=== PATIENT | male | born 1975 | race Caucasian/White ===

== ENCOUNTER 2016-10-19 20:13 | Emergency (ER) | payer SELFPAY ==
[2016-10-19 23:22] LABS: ABSOLUTE EOSINOPHILS # (AUTO) 0.3 10^3/uL (0.0-0.6); ABSOLUTE LYMPHOCYTES (AUTO) 2.2 10^3/uL (0.5-4.7); ABSOLUTE MONOCYTES (AUTO) 0.3 10^3/uL (0.1-1.4); ABSOLUTE NEUT (AUTO) 1.6 10^3/uL (1.7-8.2); BASOPHILS % (AUTO) 0.3 % (0-2); EOSINOPHILS % (AUTO) 6.4 % (0-6); HEMATOCRIT 43.8 % (37.9-51.0); HEMOGLOBIN 15.1 g/dL (13.5-17.0); HGB HCT DIFFERENCE 1.5; LYMPHOCYTES % (AUTO) 49.7 % (13-45); MEAN CORPUSCULAR HEMOGLOBIN 33.7 pg (27.0-33.4); MEAN CORPUSCULAR HGB CONC 34.4 g/dL (32.0-36.0); MEAN CORPUSCULAR VOLUME 98 fl (80-97); MONOCYTES % (AUTO) 6.2 % (3-13); RED BLOOD COUNT 4.47 10^6/uL (4.35-5.55); RED CELL DISTRIBUTION WIDTH 12.9 % (11.5-14.0); SEGMENTED NEUTROPHILS % (AUTO) 37.4 % (42-78); WHITE BLOOD COUNT 4.4 10^3/uL (4.0-10.5)
[2016-10-19 23:32] LABS: ANION GAP 15 (5-19); BLOOD UREA NITROGEN 5 mg/dL (7-20); CALCIUM 9.7 mg/dL (8.4-10.2); CARBON DIOXIDE 27 mmol/L (22-30); CHLORIDE 101 mmol/L (98-107); CREATININE RESULT 0.82 mg/dL (0.52-1.25); GLUCOSE 100 mg/dL (75-110); POTASSIUM 4.6 mmol/L (3.6-5.0); SODIUM 142.9 mmol/L (137-145)
--- NOTE | 2016-10-19 23:55 | EKG REPORT ---
SEVERITY:- BORDERLINE ECG - SINUS RHYTHM BORDERLINE INFERIOR Q WAVES : Confirmed by: Carolyn Diana 19-Oct-2016 23:54:26
--- NOTE | 2016-10-20 00:06 | ER Document Report ---
ED General - General Chief Complaint: Shortness Of Breath Stated Complaint: BACK PAIN Time Seen by Provider: 10/19/16 22:37 Notes: Patient is a 41-year-old male without past medical history who presents with 1 year of intermittent episodes of feeling short of breath with associated sinus pressure and nasal congestion. States he had a similar episode today which prompted him to come to the emergency department today. He denies any cardiac history, history of DVT or pulmonary embolus, no history of restrictive or obstructive lung disease. He has not done anything to treat his symptoms. He has not noted an obvious trigger for his symptoms. He denies any complaints at the time of my assessment. He has not seen a primary care doctor regarding today's concerns. He does use a vaporizer for smoking. - Related Data Allergies/Adverse Reactions: No Known Allergies Allergy (Unverified 10/19/16 20:28) Past Medical History - General Information source: Patient - Social History Smoking Status: Current Every Day Smoker Chew tobacco use (# tins/day): No Frequency of alcohol use: 2-3 beers daily Drug Abuse: None Lives with: Spouse/Significant other Family History: Reviewed & Not Pertinent Pulmonary Medical History: Reports: Hx Bronchitis Renal/ Medical History: Denies: Hx Peritoneal Dialysis Past Surgical History: Reports: Hx Oral Surgery - jaw/orthodontic - Immunizations Hx Diphtheria, Pertussis, Tetanus Vaccination: Yes Review of Systems - Review of Systems Notes: Constitutional: Negative for fever. HENT: Negative for sore throat. Positive for nasal congestion and postnasal drip Eyes: Negative for visual changes. Cardiovascular: Negative for chest pain. Respiratory: Positive for shortness of breath. Gastrointestinal: Negative for abdominal pain, vomiting or diarrhea. Genitourinary: Negative for dysuria. Musculoskeletal: Negative for back pain. Skin: Negative for rash. Neurological: Negative for headaches, weakness or numbness. 10 point ROS negative except as marked above and in HPI. Physical Exam - Vital signs Vitals: Temp Pulse Resp BP Pulse Ox 97.8 F 81 18 131/88 H 98 10/19/16 20:28 10/19/16 20:28 10/19/16 20:28 10/19/16 20:28 10/19/16 20:28 Interpretation: Normal Notes: PHYSICAL EXAMINATION: GENERAL: Well-appearing, well-nourished and in no acute distress. HEAD: Atraumatic, normocephalic. EYES: Pupils equal round and reactive to light, extraocular movements intact, sclera anicteric, conjunctiva are normal. ENT: nares patent, oropharynx clear without exudates. Moist mucous membranes. NECK: Normal range of motion, supple without lymphadenopathy LUNGS: Breath sounds clear to auscultation bilaterally and equal. No wheezes rales or rhonchi. HEART: Regular rate and rhythm without murmurs ABDOMEN: Soft, nontender, normoactive bowel sounds. No guarding, no rebound. No masses appreciated. EXTREMITIES: Normal range of motion, no pitting or edema. No cyanosis. NEUROLOGICAL: No focal neurological deficits. Moves all extremities spontaneously and on command. PSYCH: Normal mood, normal affect. SKIN: Warm, Dry, normal turgor, no rashes or lesions noted. Course - Re-evaluation Re-evalutation: 10/20/16 00:00 Patient presents with one-year intermittent feelings of difficulty breathing, nasal congestion and postnasal drip. Contrary to triage assessment patient actually denies any acute episodes of chest pain. He is otherwise very well in appearance, vitals within normal limits, no acute distress. Chest x-ray is clear. Laboratories including a single troponin are unremarkable. His symptoms are most consistent with likely allergic rhinitis with associated postnasal drip. He may have subtle component of reactive airway disease. He will be started on antihistamines, given an albuterol inhaler, and encouraged to follow closely as an outpatient. An acute pulmonary embolism ACS, pneumothorax, aortic dissection, or acute pneumonia based on exam, imaging and history.At this time will discharge with return precautions and follow-up recommendations. Verbal discharge instructions given a the bedside and opportunity for questions given. Medication warnings reviewed. Patient is in agreement with this plan and has verbalized understanding of return precautions and the need for primary care follow-up in the next 24-72 hours. - Vital Signs Vital signs: Temp Pulse Resp BP Pulse Ox 98.1 F 81 16 126/94 H 99 10/20/16 00:48 10/19/16 20:28 10/20/16 00:01 10/20/16 00:01 10/20/16 00:01 - Laboratory Result Diagrams: 10/19/16 22:57 10/19/16 22:57 Laboratory results interpreted by me: 10/19/16 10/19/16 22:57 22:57 MCV 98 H MCH 33.7 H Seg Neutrophils % 37.4 L Lymphocytes % 49.7 H Eosinophils % 6.4 H Absolute Neutrophils 1.6 L BUN 5 L - Diagnostic Test Radiology reviewed: Image reviewed, Reports reviewed Radiology results interpreted by me: 10/20/16 03:01 Chest x-ray: No acute infiltrate or pneumothorax - EKG Interpretation by Me Additional EKG results interpreted by me: 10/20/16 03:01 Normal sinus rhythm. Rate 70. No ST elevations or depressions. QTC is 46. Discharge - Discharge Clinical Impression: Shortness of breath Allergic rhinitis Qualifiers: Allergic rhinitis trigger: unspecified Allergic rhinitis seasonality: unspecified seasonality Qualified Code(s): J30.9 - Allergic rhinitis, unspecified Condition: Good Disposition: HOME, SELF-CARE Additional Instructions: Start taking loratadine 10 mg daily. Continue this medication daily. Use the albuterol inhaler that you have been sent home with as needed for shortness of breath. You can also use Flonase which is a nasal steroid to help with her nasal congestion and postnasal drip. Please follow-up with your primary care doctor in the next 1 week. Return if you develop worsening of your symptoms including increased shortness of breath, chest pain, vomiting, fever, altered mental status, or any other symptoms that are worrisome to you.
[2016-10-20] MEDS ORDERED: ALBUTEROL SULFATE HFA (90 MCG/PUFF) 8 GM MDI (1 MDI/ER DISP) IH PRN (00:07)
[2016-10-20] MEDS ORDERED: LORATADINE 10 MG TABLET PO ONE (00:07)
[2016-10-20 00:16] VITALS: BP 126/94
== END 2016-10-20 00:33 | disposition home or self-care (01) ==
LOC: ER 20:13
DX: R06.02 Shortness of breath (principal); J30.9 Allergic rhinitis, unspecified; M54.9 Dorsalgia, unspecified; F17.200 Nicotine dependence, unspecified, uncomplicated
CPT/HCPCS: 93005; 99285; 36415; 85025; 80048; 84484; 71010; 93010; J3490